=== PATIENT | male | born 1995 | race African-American/Black ===

== ENCOUNTER 2018-04-17 19:19 | Emergency (ER) | payer OTHER ==
[~2018-04-17] VITALS: Ht 165.1 cm; Wt 61.0 kg
[2018-04-17 20:16] VITALS: BP 135/56
== END 2018-04-18 00:20 | disposition left against medical advice (07) ==
LOC: ER 19:19
DX: M79.672 Pain in left foot (principal); Z53.21 Procedure and treatment not carried out due to patient leaving prior to being seen by health care provider